=== PATIENT | female | born 2000 | race African-American/Black ===

== ENCOUNTER 2023-08-27 07:29 | Outpatient (AMB) | payer OTHER, SELFPAY ==
[2023-08-27 07:51] VITALS: BP 92/60; PULSE 92; BMI 32.8
--- NOTE | 2023-08-27 07:51 | MHC.PC.OV ---
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 Intake Note: Pt is here today as a New Patient to est care/ PS+E Allergies No Known Allergies Allergy (Verified 08/27/23 07:52) Medication List - Last Reconciled 08/27/23 by Evelyn Rodriguez MD No Known Home Meds Tobacco use date assessed: 08/27/23 Dental Screening Dental Screen Date: 08/27/23 Did you have a dental visit in the last 12 months?: Yes Did you have a dental problem in the last 6 months where you did not have access to dental care?: No Was dental information given to patient?: Patient has dentist HPI 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 [facility] Family History (Updated 08/27/23 @ 08:09 by Evelyn Rodriguez MD) Sister No problems noted. Sister No problems noted. Father DM type 2 (diabetes mellitus, type 2) CVA (cerebral vascular accident), Onset Age: 52 Social History (Updated 08/27/23 @ 08:08 by Evelyn Rodriguez MD) Household Members Other:: lives with mother, works at [employer], e-Cigarette/Vaping Use: Never Used service: No Current occupational status: employed Cognitive needs: No Hearing needs: No Vision needs: Yes Questionnaire PHQ-9 Over the last 2 weeks, how often have you been bothered by any of the following problems? 1. Little interest or pleasure in doing things: several days 2. Feeling down, depressed, or hopeless: not at all 3. Trouble falling or staying asleep, or sleeping too much: several days 4. Feeling tired or having little energy: nearly every day 5. Poor appetite or overeating: not at all 6. Feeling bad about yourself - or that you are a failure or have let yourself or your family down: not at all 7. Trouble concentrating on things, such as reading the newspaper or watching television: several days 8. Moving or speaking so slowly that other people could have noticed. Or the opposite - being so fidgety or restless that you have been moving around a lot more than usual: not at all 9. Thoughts that you would be better off or of hurting yourself in some way: not at all Total score: 6 Depression Screening Interpretation: Negative Depression Screening Done: Yes Source: Developed by Drs. Lewis Klein, Ana Rogers, Dwayne Carmona and colleagues, with an educational sinai from [employer]. Thrive Questionnaire Date Thrive assessed: 08/27/23 I am a: Patient What is your living situation today?: I have a steady place to live Within the past 12 months, did the food you bought not last and you didn't have the money to get more?: Often true Do you have trouble paying for medicines?: No Do you have trouble getting transportation to medical appointments?: No Do you have trouble paying your heating and electricity bill?: Yes Do you have trouble taking care of your child, family member or friend?: No Do you have trouble with day-to-day activities such as bathing, preparing meals, shopping, managing finances, etc.?: Yes Are you currently unemployed and looking for a job?: No Are you interested in more education?: Yes THRIVE Score: 2 AUDIT C Alcohol Use Questionnaire (AUDIT-C) 1. How often do you have a drink containing alcohol?: Never Total Score: 0 NELSON-7 AMB Questionnaire NELSON-7 Date NELSON - 7 assessed: 08/27/23 Feeling nervous, anxious, or on edge: 0 = Not at all Not being able to stop or control worryin = Not at all Worrying too much about different things: 1 = Several days Trouble relaxin = Several days Being so restless that it is hard to sit still: 0 = Not at all Becoming easily annoyed or irritable: 0 = Not at all Feeling afraid as if something awful might happen: 1 = Several days Total NELSON-7 score (0-4 normal; 5-9 mild; 10-14 moderate; 15-21 severe): 3 Source: Developed by Drs. Lewis Klein, Ana Rogers, Dwayne Carmona and colleagues, with an educational sinai from [employer]. Review of Systems Const All systems reviewed & are unremarkable except as noted in HPI and below Reports no additional complaints Eyes Reports no additional complaints ENT Reports no additional complaints Card Reports no additional complaints Resp Reports no additional complaints GI Reports no additional complaints Reports no additional complaints Physical exam (Primary Care) Vital Signs: Last Vital Signs Pulse 92 08/27/23 07:51 BP 92/60 08/27/23 07:51 BMI result Body Mass Index 32.8 Tobacco/Smoking Status: Tobacco use Status Tobacco use date assessed 08/27/23 08/27/23 07:57 e-Cigarette/Vaping Use Never Used 08/27/23 08:08 PHQ-9: PHQ-9 Score PHQ-9: Total score 6 08/27/23 08:26 Depression Screening Interpretation: Negative Thrive Assessment: Date of Thrive Assessment Date Thrive assessed 08/27/23 08/27/23 07:57 Const General: no acute distress HENMT Head: Yes normal to inspection Ears: hearing grossly normal bilaterally General nose exam: Normal external nose present Face and sinus: Yes normal facial exam Mouth: Normal oral and palatal mucosa present Throat: Yes posterior oropharynx normal Eyes General: appearance normal, both eyes and all related structures Neck Neck: Yes no lymphadenopathy and Yes supple Resp Effort & Inspection: normal respiratory effort Auscultation: clear to auscultation bilaterally Cardio Rhythm: regular rhythm Heart sounds: S1 normal heart sound present and S2 normal heart sound present GI Inspection: Yes normal to inspection Palpation (GI): Soft to palpation Auscultation: normal bowel sounds Back/Spine/Pelvis Other: KYPHOSCOLIOSIS Assessment and Plan Assessment & Plan (1) Annual physical exam: Code(s): Z00.00 - Encounter for general adult medical examination without abnormal findings Plan: WELL-BALANCED DIET REGULAR PHYSICAL ACTIVITY DISCUSSED WITH THE PATIENT. SHE WILL RETURN FOR FASTING BLOOD WORK (2) Scoliosis: Comment: s/p surgeries [facility] Code(s): M41.9 - Scoliosis, unspecified Plan: Patient asked for the referral to orthopedic surgeon for chronic lower back (3) Rhinitis: Comment: chronic rhinitis Code(s): J31.0 - Chronic rhinitis Plan: For chronic rhinitis patient will be referred to scrap metal burner (4) Amenorrhea: Comment: Irregular menses Code(s): N91.2 - Amenorrhea, unspecified Plan: For irregular menses obtain basic labs including TSH FSH and LH level, referred to offset press assistant (5) Overweight: Code(s): E66.3 - Overweight Plan: Increase physical activity weight loss discussed with the patient (6) Chronic lower back pain: Code(s): M54.50 - Low back pain, unspecified; G89.29 - Other chronic pain Plan: Referred to ortho Orders: Orders Lipid Panel Today E66.3 - Overweight, Z00.00 - Encounter for general adult medical examination without abnormal findings TSH reflex Free T4 Today E66.3 - Overweight, Z00.00 - Encounter for general adult medical examination without abnormal findings Lutenizing Hormone Today N91.2 - Amenorrhea, unspecified Complete Blood Count no Diff Today E66.3 - Overweight, Z00.00 - Encounter for general adult medical examination without abnormal findings Comprehensive [place]. Panel Fast Today E66.3 - Overweight, Z00.00 - Encounter for general adult medical examination without abnormal findings Follicle Stimulating Hormone Today N91.2 - Amenorrhea, unspecified UA w Microscopic Today Z00.00 - Encounter for general adult medical examination without abnormal findings Referrals Allergy & Immunology Referral J31.0 - Chronic rhinitis PROFESSOR OF COMMUNICATION AND WRITING Referral N91.2 - Amenorrhea, unspecified Nutrition/Dietitian Referral E66.3 - Overweight Orthopedics Referral G89.29 - Other chronic pain, M41.9 - Scoliosis, unspecified, M54.50 - Low back pain, unspecified Coding Level of Care Code New Pt Prev Care 18-39yr([id number] Diagnoses Annual physical exam Z00.00 Scoliosis M41.9 Rhinitis J31.0 Amenorrhea N91.2 Overweight E66.3 Chronic lower back pain M54.50; G89.29
== END 2023-08-27 08:44 | disposition home or self-care (01) ==
PROVIDERS: PCP Internal Medicine; Visit Provider Internal Medicine
DX: Z00.00 Encounter for general adult medical examination without abnormal findings (principal); M41.9 Scoliosis, unspecified; J31.0 Chronic rhinitis; N91.2 Amenorrhea, unspecified; E66.3 Overweight; M54.50 Low back pain, unspecified; G89.29 Other chronic pain
CPT/HCPCS: 99385

== ENCOUNTER 2023-08-27 08:23 | Outpatient (REF) | payer OTHER, SELFPAY ==
[2023-08-27 11:37] LABS: Appearance Urine Turbid; Color Urine Yellow; Glucose Urine UA Negative (Negative); Leukocyte Esterase Urine Negative (Negative); Nitrite Urine Negative (Negative); Specific Gravity - Urine >= 1.030 (1.005-1.025); Urine Blood Negative (Negative); Urine Ketones Negative (Negative); Urine Protein Negative (Neg-Trace)
[2023-08-27 11:41] LABS: Bacteria Urine 2+ (None Seen); Hyaline Casts Urine 0-2 /LPF (0-2); RBC Urine 0-2 /HPF (0-2)
[2023-08-27 11:43] LABS: Hematocrit 41.3 % (37.0-47.0); Hemoglobin 12.7 g/dl (12.0-16.0); Mean Corpuscular HGB Conc 30.8 g/dl (31.0-35.0); Mean Corpuscular Volume 84.6 fL (80.0-98.0); Mean Platelet Volume 9.9 fL (9.4-12.3); Platelet Count 424 X10*3/uL (160-400); Red Blood Count 4.88 X10*6/uL (4.20-5.50); Red Cell Distribution Width 13.2 % (11.0-16.0); White Blood Count 6.5 X10*3/uL (4.8-10.8)
[2023-08-27 12:12] LABS: Alanine Aminotransferase 17 U/L (0-31); Albumin Level 4.2 g/dL (3.5-5.0); Alkaline Phosphatase 94 U/L (39-117); Anion Gap 13 (12-20); Aspartate Amino Transferase 18 U/L (5-31); Bilirubin Total 0.3 mg/dL (0.0-1.0); Blood Urea Nitrogen 15 mg/dL (9-16); Calcium 9.9 mg/dL (8.4-10.2); Carbon Dioxide 26 mmol/L (22-29); Chloride 103 mmol/L (96-108); Cholesterol 147 mg/dL (<200); Estimated Glomerular Filt Rate > 60; Glucose Fasting 94 mg/dL (60-99); HDL Cholesterol 46 mg/dL (>40); LDL Cholesterol Calculated 89 mg/dL (<100); Potassium 4.1 mmol/L (3.3-5.1); Sodium 138 mmol/L (135-145); Total Protein 7.9 g/dL (6.5-8.0); Triglycerides 61 mg/dL (<150)
[2023-08-27 12:29] LABS: TSH reflex Free T4 0.72 uIU/mL (0.32-4.0)
[2023-08-28 12:43] LABS: Follicle Stimulating Hormone 7.5 mIU/mL; Lutenizing Hormone 13.6 mIU/mL
== END 2023-08-27 08:24 | disposition home or self-care (01) ==
LOC: HO.HMGCLDS 08:23
PROVIDERS: PCP Internal Medicine; Visit Provider Internal Medicine
DX: Z00.00 Encounter for general adult medical examination without abnormal findings (principal); E66.3 Overweight; N91.2 Amenorrhea, unspecified
CPT/HCPCS: 36415; 80053; 80061; 81001; 83001; 83002; 84443; 85027

== ENCOUNTER 2023-09-26 08:34 | Outpatient (AMB) | payer OTHER, SELFPAY ==
[2023-09-26 08:39] VITALS: BMI 33.4
--- NOTE | 2023-09-26 08:39 | A.OFFVIS_ITS ---
Intake VS Expanded 09/26/23 08:39 09/26/23 08:53 Height 4 ft 5 in 4 ft 5 in Weight 133 lb 6.075 oz 133 lb BMI 33.4 33.3 Intake Visit Reasons: Overweight/CONFIRMED Allergies No Known Allergies Allergy (Verified 08/27/23 07:52) HPI Nutrition Presentation Details Pt presents for MNT for overweight. The Pt was referred by Dr. Rodriguez Pt has scoliosis. Pt prepares own meals Typical meal intake 6-8 am coffee black , no sugar egg sand 2 slices rye with cheese or oatmeal milk ( lactose free and sugar) 12-1pm sand or salad or macaroni, water 4pm rice/salmon or potatoes with steak a nd water reports having no snacks physical activity: sedentary ETOH/SMoking - ---- food frequency fish: 2 times/d fruits 1-2 /d veg 2 serving/d dairy: cheese, parmalait BSA-Qcahhqd-Fn.Jeor Equation Height 4 ft 5 in Weight 133 lb Resting Metabolic Rate 1160.05 Calculated Activity Level Sedentary Calories Needed to Maintain Weight 1392.06 Diagnosis Nutrition problem #1 overweight/obesity As related to (etiology) #1 diagnosis As evidenced by (sign/symptom) #1 high BMI (33.3 on 09/26/23) and knowledge deficit of diet Monitoring/Goals Nutrition problem monitoring level of knowledge/skill, total PRO intake, total CHO intake, weight and oral fluids Nutrition goal/outcome list 3 CHO foods and wt loss 5lbs in 2 months Outcome progress verbalized understanding Learning/Education Readiness to learn good Stages of change contemplation Educational materials provided Yes (meal planning) Most Recent Diabetes Results: Cholesterol 147 mg/dL (<200) 08/27/23 HDL Cholesterol 46 mg/dL (>40) 08/27/23 Triglycerides 61 mg/dL (<150) 08/27/23 Creatinine 0.62 mg/dL (0.5-1.4) 08/27/23 Blood Urea Nitrogen 15 mg/dL (9-16) 08/27/23 Sodium 138 mmol/L (135-145) 08/27/23 Potassium 4.1 mmol/L (3.3-5.1) 08/27/23 Chloride 103 mmol/L (96-108) 08/27/23 Carbon Dioxide 26 mmol/L (22-29) 08/27/23 Calcium 9.9 mg/dL (8.4-10.2) 08/27/23 AST 18 U/L (5-31) 08/27/23 ALT 17 U/L (0-31) 08/27/23 Total Protein 7.9 g/dL (6.5-8.0) 08/27/23 Albumin 4.2 g/dL (3.5-5.0) 08/27/23 PFSH Family History (Updated 08/27/23 @ 08:09 by Evelyn Rodriguez MD) Sister No problems noted. Sister No problems noted. Father DM type 2 (diabetes mellitus, type 2) CVA (cerebral vascular accident), Onset Age: 52 Social History (Updated 08/27/23 @ 08:08 by Evelyn Rodriguez MD) Household Members Other:: lives with mother, works at [employer], e-Cigarette/Vaping Use: Never Used service: No Current occupational status: employed Cognitive needs: No Hearing needs: No Vision needs: Yes Assessment & Plan Assessment & Plan (1) Overweight: Code(s): E66.3 - Overweight Plan: Wt: 60 Kg ( 09/2023 ) Est kcal needs as per MSJ: 1400 (40% carb, 30% protein/fat) Est fluid needs as per 25-30 ml/d: 1800 Est prot per day as per 1 g/kg bw: 60 Recommend fiber intake : 8-10 g per day and gradually increase to 25-28 g per day for women and 35-38 g for men or as tolerated Recommend sodium intake per day : less than 2000 mg Educated patient on: ( R = reviewed V = verbalizes understanding N/R = needs review N/A = not applicable * Food sources of carbohydrate, adequate serving sizes and its role in various health conditions: R * Differences between complex carbohydrates a simple carbohydrates, role of fiber in diet: R * Lean protein sources of foods: R * Differences between types of fats and role in diet (mono on saturated fat fatty acids, saturated fatty acids, trans fats): R basic * Food sources of sodium in salt and healthy modifications for heart health in kidney health: N/R * Vitamins and minerals: R * Healthy plate method concept: R * Physical activity: Benefits a precaution: N/R * PREvention of DM: R * Patient Instructions: Work on following healthy plate method Reduce on portions of starches- goal 30 g at meals following healthy plate method Keep hydrated by having water with meals and snacks practice mindful eating Coding Level of Care Code Nutr Indiv Intake (83539) Diagnoses Overweight E66.3 Time Spent (min) 30 Comment Pt declined sooner appt
[2023-09-26 08:53] VITALS: BMI 33.3
== END 2023-09-26 09:10 | disposition home or self-care (01) ==
PROVIDERS: PCP Internal Medicine; Visit Provider Dietitian, Registered
DX: E66.3 Overweight (principal)

== ENCOUNTER → 2023-09-26 08:34 | Outpatient (BNVA) | payer OTHER, SELFPAY | PROVIDERS: PCP Internal Medicine; Visit Provider Dietitian, Registered | DX: E66.3 Overweight (principal); Z68.33 Body mass index [BMI] 33.0-33.9, adult | CPT/HCPCS: 97802 ==

== ENCOUNTER 2023-10-04 08:45 | Outpatient (AMB) | payer OTHER, SELFPAY ==
--- NOTE | 2023-10-04 09:00 | MHC.OFFVIS ---
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 Patient reports ongoing pain for a couple of years. She has a hx of scoliosis. Hx of taking muscle relaxers. Hx of PT with mild relief. Currently, is having a 5/10 pain on the pain scale. Hx of spinal/ hip fusion. Pain is worse when lifting and bending down per patient. Patient states that her moves down to her hips. Allergies No Known Allergies Allergy (Verified 08/27/23 07:52) Medication List - Last Reconciled 10/04/23 by Corina Laurent MD No Known Home Meds HPI HPI Comments History of Present Illness Details Several surgeries for the back; two major ones are: lumbar fusion/hardware in place 2004 for scoliosis at [facility], 4 years old; 2011 hip/spinal fusion left, 11 years old for leg length discrepancy. Been having pain 2014 up and low back. Low back pain with lifting. Upper back is constant. Had followed up with surgeons 2014-; prescribed physical therapy. In 2019 went [place] [facility] prescribed muscle relaxers (which makes her drowsiness). Told she has too much scar tissue to remove hardware . Daily pain, 4-8/10. Can cause her to limp on left. Non radiating to legs or arms. Worse with walking by 1 1/2 hours. Tingling on both hands, rare, position, not at nighttime. Neck pain only rare, positional. No bladder/bowel changes. Medications for pain usually puts her to sleep. Has tried lorazepam. Does not think she has tried gabapentin or lyrica. Has tried NSAIDs. Last PT 2019. Disability denied. 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 HS graduate. Planning to start college [employer]. Lives with mother. Drives. Independent. Wants to manage pain; and support to get SSI. [facility] Medical History (Updated 10/04/23 @ 13:06 by Corina Laurent MD) Hip pain Surgical History (Updated 10/04/23 @ 09:37 by Corina Laurent MD) History of hip surgery History of lumbar fusion Family History (Updated 08/27/23 @ 08:09 by Evelyn Rodriguez MD) Sister No problems noted. Sister No problems noted. 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 Small stature. Patient was appropriately conversant and oriented. Good historian. MSK: Convex on right upper thoracic. Tender on midthoracic and lower lumbar. Neurological: Neurologic examination of the upper and lower extremities was nonfocal with intact sensation, muscle stretch reflexes and without focal motor deficits [ ]. Segundo?s [negative bilaterally]. Babinski was [down going bilaterally]. Clonus was [negative]. Results Reviewed Results Reviewed: Lumbar x-rays done in the office today, hardware seen, await official reading. I reviewed records from the following: PCP Assessment & Plan Assessment & Plan (1) Hip pain: Code(s): M25.559 - Pain in unspecified hip Qualifiers: Laterality: left Qualified Code(s): M25.552 - Pain in left hip (2) Chronic lower back pain: Code(s): M54.50 - Low back pain, unspecified; G89.29 - Other chronic pain Qualifiers: Back pain laterality: bilateral Sciatica presence: without sciatica Qualified Code(s): M54.50 - Low back pain, unspecified; G89.29 - Other chronic pain (3) History of hip surgery: Code(s): Z98.890 - Other specified postprocedural states (4) History of lumbar fusion: Code(s): Z98.1 - Arthrodesis status Plan Chronic lower back, upper back, left hip pain, with history of multiple complicated surgeries in the past. We will get another x-ray today for left hip, assess placement of hardware. Await official reading of lumbar x-rays. We talked about medications she can start but she is afraid to start anything due to side effects of drowsiness. She is willing to do physical therapy and referral placed. She may consider injections in the future if would be recommended. We will see after x-rays done and see how she responds to physical therapy. Indicated she might need support in obtaining SSI. Assessment and plan discussed with patient, and patient was agreeable. All questions were answered thoroughly. Corina Laurent MD, KATTY Board Certified, [place] Board [employer] and Rehabilitation (ABPMR) Board Certified, [place] Board [employer] Electrodiagnostic Medicine (ABEM) Orders: Orders PT Evaluation and Treatment Today G89.29 - Other chronic pain, M25.559 - Pain in unspecified hip, M54.50 - Low back pain, unspecified, Z98.1 - Arthrodesis status, Z98.890 - Other specified postprocedural states XR hip LT min 2V Today G89.29 - Other chronic pain, M25.559 - Pain in unspecified hip, M54.50 - Low back pain, unspecified, Z98.1 - Arthrodesis status, Z98.890 - Other specified postprocedural states XR lumbar spine 2-3V Today M54.9 - Dorsalgia, unspecified Coding Level of Care Code New Pt Level 4 (11010) Diagnoses Pain of left hip M25.552 Laterality: left Chronic bilateral low back pain without sciatica M54.50; G89.29 Back pain laterality: bilateral Sciatica presence: without sciatica History of hip surgery Z98.890 History of lumbar fusion Z98.1
[2023-10-04 09:04] VITALS: BMI 33.3
== END 2023-10-04 10:01 | disposition home or self-care (01) ==
PROVIDERS: PCP Internal Medicine; Visit Provider Physical Medicine & Rehabilitation
DX: M25.552 Pain in left hip (principal); M54.50 Low back pain, unspecified; G89.29 Other chronic pain; Z98.890 Other specified postprocedural states; Z98.1 Arthrodesis status
CPT/HCPCS: 99204

== ENCOUNTER 2023-10-04 09:36 | Outpatient (REF) | payer OTHER, SELFPAY ==
--- NOTE | ~2023-10-04 | XR_ITS ---
EXAMINATION: XR HIP, LEFT CLINICAL INFORMATION: Pain COMPARISON: None available. TECHNIQUE: Two views of the left hip. FINDINGS: Partially visualized lumbosacral and sacroiliac hardware with fracture of the inferior margins of the thoracolumbar rods are evaluated on dedicated lumbar imaging. No acute visible fracture or dislocation. Degenerative arthropathy of the left femoral acetabular joints greatest along its medial margin. Joint space alignment are otherwise maintained. Soft tissues are unremarkable. XR/XR hip LT min 2V IMPRESSION: 1. Partially visualized lumbosacral and sacroiliac hardware with fracture of the inferior margins of the thoracolumbar rods better evaluated on contemporaneous dedicated lumbar imaging. 2. No acute visible fracture or dislocation. 3. Degenerative arthropathy of the left femoral acetabular joint greatest along its medial margin.
--- NOTE | ~2023-10-04 | XR_ITS ---
EXAMINATION: XR LUMBOSACRAL SPINE CLINICAL INFORMATION: Dorsalgia unspecified COMPARISON: None available. TECHNIQUE: Three views of the lumbosacral spine. FINDINGS: Status post thoracolumbar and sacroiliac fusion. There is fracture and displacement of the bilateral thoracolumbar rods along their inferior margins Limited evaluation of the vertebral bodies secondary to image penetration. No acute visible fracture or dislocation. Loss of the lumbar lordosis. Vertebral body heights and disc spaces are otherwise maintained. Posterior elements are intact. Paraspinal soft tissues unremarkable. Visualized bowel gas is unremarkable. XR/XR lumbar spine 2-3V IMPRESSION: 1. Status post thoracolumbar and lateral sacroiliac fusion with fracture and displacement of the bilateral thoracolumbar rods along their inferior margins. 2. Limited evaluation of the vertebral bodies secondary to image penetration. 3. No acute visible fracture or dislocation. 4. Loss of the lumbar lordosis.
== END 2023-10-04 09:37 | disposition home or self-care (01) ==
LOC: HO.HOSX 09:36
PROVIDERS: Visit Provider Physical Medicine & Rehabilitation
DX: M54.50 Low back pain, unspecified (principal); M25.552 Pain in left hip; G89.29 Other chronic pain; Z98.1 Arthrodesis status; Z98.890 Other specified postprocedural states
CPT/HCPCS: 72100; 73502; 99202

== ENCOUNTER 2023-10-22 13:32 | Outpatient (AMB) | payer OTHER, SELFPAY ==
[2023-10-22 13:34] VITALS: BP 89/56; BMI 33.5
--- NOTE | 2023-10-22 13:34 | A.OFFVIS_ITS ---
Intake Vital Signs 10/22/23 13:34 Height 4 ft 5 in Weight 134 lb BMI 33.5 BP 89/56 L Intake Visit Reasons: RECYCLING TECH,Amenorrhea/PCP Ref Intake Note: very irregular menses and also notice she has a lump in her lower abdomen Fisher Eel Required: No Information Interpreted: non-clinical & clinical Government Affairs Director: Government Affairs Director Present (Cynthia) Allergies No Known Allergies Allergy (Verified 10/22/23 13:37) Medication List - Last Reconciled 10/22/23 by Chantal Barnett CNM No Known Home Meds Is last menstrual period known: Yes Last menstrual period: 09/21/23 Post menopausal: No HPI RECYCLING TECH,Amenorrhea/PCP Ref HPI Details 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 She said she had a normal. On September 20 that lasted 7 days and it was painful but she uses hot packs for them she likes those. She can take ibuprofen but sometimes it makes her throw up. She says the previous to that it had been a year since she had a period. She has never had a Pap smear she has never had sex with anyone and says nobody has touched her intimately. Patient says she is not sure what she would do for control because she in her mind would not be having sex until she is . She did come prepared she says to have a pelvic exam today but she is anxious. She has never had a claims administrator exam before. She says she has not been seen for medical who care for very long time until she just met her primary care provider recently. She has scoliosis and kyphosis and has had multiple surgeries and feels that she was experimented upon. She says she is dealt with a lot of mouth practice about her multiple surgeries in [place]. She does not recall any evaluation for not having her periods she does not know if it ever came up because she is has avoided care for so long. She has back pain all the time and she says she is doing physical therapy for it now. 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 In questioning about history of weight gain or loss she said she did gain some weight some years back. [facility] Medical History Scoliosis Hip pain Surgical History History of hip surgery History of lumbar fusion Family History Sister No problems noted. Sister No problems noted. Father DM type 2 (diabetes mellitus, type 2) CVA (cerebral vascular accident), Onset Age: 52 Social History Household Members Other:: lives with mother, works at [employer], Alcohol intake: never Patient Tobacco Use Status: Never used Tobacco e-Cigarette/Vaping Use: Never Used service: No Current occupational status: unemployed and student Cognitive needs: No Hearing needs: No Vision needs: Yes Female Reproductive History Menstrual Age of Menarche: 8 Duration of menses: 6-7 days Date of last menstrual period: 09/21/23 control method: none Total pregnancies: 0 Physical Exam Vital Signs: Last Vital Signs BP 89/56 L 10/22/23 13:34 BMI result Body Mass Index 33.5 Const General: well groomed Nutritional Appearance: obese Limitations: other limitations (Patient has severe scoliosis short stature status post multiple surgeries) Chest Breast/axilla inspection: normal inspection of the breasts and normal inspection of the axillae Breast/axilla palpation: normal palpation of the breasts and normal palpation of the axillae Other: External exam within normal limits. Laith speculum inserted very gently but patient found it painful when opening to try to locate the cervix speculum was removed at patient request mucosa appeared within normal limits mucus appeared within normal limits no testing done patient is virginal and had no need of any cultures. Patient to consider when she wishes to try again for her 1st Pap smear.. Assessment & Plan Assessment & Plan (1) Scoliosis: Comment: s/p surgeries [facility] Code(s): M41.9 - Scoliosis, unspecified (2) History of hip surgery: Code(s): Z98.890 - Other specified postprocedural states (3) History of lumbar fusion: Code(s): Z98.1 - Arthrodesis status (4) Chronic lower back pain: Code(s): M54.50 - Low back pain, unspecified; G89.29 - Other chronic pain Qualifiers: Back pain laterality: bilateral Sciatica presence: without sciatica Qualified Code(s): M54.50 - Low back pain, unspecified; G89.29 - Other chronic pain (5) Overweight: Code(s): E66.3 - Overweight (6) Amenorrhea: Comment: Irregular menses; patient reports a normal menses 09/21/2023 but previous to that, was amenorrheic for year. Code(s): N91.2 - Amenorrhea, unspecified (7) Cervical cancer screening: Comment: Patient could not tolerate placement of thin Laith speculum for Pap testing. patient to decide when she can try again. Code(s): Z12.4 - Encounter for screening for malignant neoplasm of cervix (8) History of prescribed enteral nutrition feeding: Code(s): Z92.89 - Personal history of other medical treatment Plan Has noted attempt to do patient's 1st Pap but just as the thin Laith speculum was opening patient found it painful and so Laith speculum was withdrawn. Cervix was not fully visualized at all Pap not done. Discussed patient's history of her amenorrhea. It is very difficult to say all that is involved in her medical history. I discussed that while she may be at lower risk than many for any kind of cervical cancer it still is recommended to have Pap smears from age 21. It will be up to her when she wishes to attempt again to relax enough to permit the Pap smear to be done. As long as she has not sexually active she would not need testing for any STIs and she did not complain of any other symptoms. Discussed her history of amenorrhea. If she continues to get regular monthly periods from this point forward that is good. However if she does not and she goes through prolonged periods of amenorrhea this needs to be looked that and she might actually need to see a gynecological customer relations specialist discussed that she can decide who she wishes to see for least the next attempt at a Pap smear. Additionally I offered for her to have a pelvic ultrasound done. We can have a tele visit or in-person visit her choice after that. Orders: Orders US pelvic and transvaginal Today M41.9 - Scoliosis, unspecified, N91.2 - Amenorrhea, unspecified, Z12.4 - Encounter for screening for malignant neoplasm of cervix Coding Level of Care Code New Pt Prev Care [id number] Diagnoses Scoliosis M41.9 History of hip surgery Z98.890 History of lumbar fusion Z98.1 Chronic bilateral low back pain without sciatica M54.50; G89.29 Back pain laterality: bilateral Sciatica presence: without sciatica Overweight E66.3 Amenorrhea N91.2 Cervical cancer screening Z12.4 History of prescribed enteral nutrition feeding Z92.89
== END 2023-10-22 14:55 | disposition home or self-care (01) ==
PROVIDERS: PCP Internal Medicine; Visit Provider Advanced Practice Midwife
DX: Z01.419 Encounter for gynecological examination (general) (routine) without abnormal findings (principal); N91.2 Amenorrhea, unspecified; M41.9 Scoliosis, unspecified; M54.50 Low back pain, unspecified; Z98.1 Arthrodesis status; G89.29 Other chronic pain; E66.3 Overweight; Z92.89 Personal history of other medical treatment
CPT/HCPCS: 99385

== ENCOUNTER → 2023-10-22 13:32 | Outpatient (BNVA) | payer OTHER, SELFPAY | PROVIDERS: PCP Internal Medicine; Visit Provider Advanced Practice Midwife | DX: Z53.8 Procedure and treatment not carried out for other reasons (principal); N91.2 Amenorrhea, unspecified; E66.3 Overweight; M41.9 Scoliosis, unspecified; Z68.33 Body mass index [BMI] 33.0-33.9, adult; M54.50 Low back pain, unspecified; G89.29 Other chronic pain; Z92.89 Personal history of other medical treatment; Z98.1 Arthrodesis status; Z98.890 Other specified postprocedural states | CPT/HCPCS: 99385 ==

== ENCOUNTER 2023-11-15 11:00 | Outpatient (RCR) | payer OTHER, SELFPAY ==
--- NOTE | 2023-10-19 15:45 | MHC.PT.EP ---
[facility] [place] [facility] [place] [facility] [place] [facility] [address] [phone] F: [phone] F: [phone] F: [phone] F: [phone] Physical Therapy Plan of Care Date of Evaluation: 10/19/23 Date of Surgery: 2004 SCOLIOSIS YUE Diagnosis: CHRONIC BACK PAIN,SCOLIOSIS AND LEFT HIP FUSION-> PLEASE WORK ON ROM Assessment: 23 YO FEMALE REF TO PT FOR CHRONIC LBP W H/O 2004 SCOLIOSIS YUE PLACEMENT AND LEFT SI FUSION 2011- THE Pt NOTES AND XR REPORT REFLECTS fracture and displacement of the bilateral thoracolumbar rods along their inferior margins. 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 OBJECTIVELY, THE Pt HAS ALTERED POSTURE DUE TO SCOLIOSIS (THORACIC Rt W ELEV Rt SH AND PELVIC ASYM W Rt LONG LEG EFFECT), LIMITED TRUNK AROM, WEAK ABDOM MM/ DIFFIC ISOLATING THEM, SIGNIF SCRA TISSUE ALONG POSTERIOR SPINE., AND FLUCTUATING PAIN. FUNCTIONALLY, THE Pt IS LIMITED W STAIR NAVIGATION, DECR ZARINA TO STANDING, SITTING, WALKING, AND BENDING. THE Pt IS INDEP W TRANSFERS AND BED MOB- HER GOAL IS TO DECR HER PAIN, REVISE HER HEP FROM PRIOR PT, AND ADDRESS ABDOMINAL STABILIZATION , RETURNING TO THE WORK FORCE/ EMPLOYMENT. Frequency and Duration: The patient will be seen 2 x WK x 4 WKS Short Term Goals: *INITIATE HEP-> ACTIVATE ABDOM *DECR BACK PAIN TO 3-4 W REG ADLs *DECR TISSUE TENSION ABLE IN POSTERIOR CHAIN Care Home Goals: *INDEP HEP AND SELF-SX MGMT TECHN *IMPROVE ACTIVITY/ FITNESS LEVEL EVIDENT W IMPROVED OSWESTRY ( AT EVAL) Treatment Plan: Modalities to reduce pain, spasms and effusion. Manual therapy to restore motion and function. Therapeutic exercise to improve strength and flexibility. Neuromuscular re-education for posture and balance. Therapeutic activities to return to functional activities of daily living. Electronically signed by: SEAN BLUNT,PT Please sign and return to therapist. Thank you for your referral.
--- NOTE | 2023-11-15 12:23 | MHC.PT.DC ---
[facility] [place] Office [place] Office [place] Office [address] [facility] [phone] F: [phone] F: [phone] F: [phone] F: [phone] Physical Therapy Discharge Report Diagnosis: CHRONIC BACK PAIN,SCOLIOSIS AND LEFT HIP FUSION-> PLEASE WORK ON ROM Date of Surgery: 2004 SCOLIOSIS YUE Date of Evaluation: 10/19/23 Date of Discharge: 11/15/23 Treatments to Date: 7 Cancellations to Date: 0 No Shows to Date: 0 Discharge Status: Achieved Goals Improved Function Independent with HEP Discharge Summary: PATRIA HAS MADE SIGNIFICANT GAINS IN PT-> SHE HAS IMPROVED FUNCTIONAL MOBILITY, MORE EFFICIENT GAIT, OVERALL DECR PAIN , AND IMPROVED TRUNK/ LEs STRENGTH. SHE HAS A THOROUGH , PROGRESSIVE HEP. THE Pt IS MORE AWARE RE POSTURE, BODY MECH, AND ERGONOMICS TO REDUCE RISK OF REINJURY. HER OSWESTRY SCORE IS 12/50. SHE HAS MET HER GOALS AND IS D/C THIS DATE. Electronically signed by: SEAN BLUNT,PT Please sign and return to therapist. Thank you for your referral.
== END 2023-11-15 12:24 | disposition home or self-care (01) ==
LOC: HO.PT 11:00
PROVIDERS: PCP Internal Medicine; Visit Provider Physical Medicine & Rehabilitation
DX: M54.50 Low back pain, unspecified (principal); G89.29 Other chronic pain; M25.552 Pain in left hip
CPT/HCPCS: 97110; 97162; 97530

== ENCOUNTER 2024-03-03 11:46 | Outpatient (REF) | payer OTHER, SELFPAY ==
[2024-03-08 15:15] LABS: TS Negative Control PASSED; TS Panel A 0; TS Panel B 0; TSpotTB NEGATIVE
[2024-03-08 15:16] LABS: TS Positive Control PASSED
== END 2024-03-03 11:47 | disposition home or self-care (01) ==
LOC: HO.10HDL 11:46
PROVIDERS: Visit Provider Internal Medicine
DX: Z11.1 Encounter for screening for respiratory tuberculosis (principal)
CPT/HCPCS: 36415; 86481